=== PATIENT | male | born 1960 | race African-American/Black ===

== ENCOUNTER 2018-10-13 06:52 | Observation (INO) ==
--- NOTE | 2018-10-06 08:43 | EKG Report ---
Test Performed on : 10/06/2018 08:12:23 AM Test Reason : PAT Blood Pressure : / mmHG Vent. Rate : 061 BPM Atrial Rate : 061 BPM P-R Int : 166 ms QRS Dur : 102 ms QT Int : 412 ms P-R-T Axes : 059 072 065 degrees QTc Int : 414 ms Sinus rhythm. with premature atrial complexes. Incomplete right bundle branch block Borderline ECG No previous ECGs available Confirmed by Siddhartha ROJAS, Winston Ariza ([id number]) on 10/06/2018 10:24:09 AM
[2018-10-06 08:57] LABS: URINE SOURCE CLEAN CATCH
[2018-10-06 09:05] LABS: BASO# 0.03 X1000 (0.0-0.2); BASO% 0.5 % (0.0-0.8); EOS# 0.36 X1000 (0.0-0.7); EOS% 5.8 % (0.0-10.0); HEMATOCRIT 40.2 % (42.0-52.0); HEMOGLOBIN 13.2 g/dL (14.0-18.0); IMM GRAN# 0.03 X1000 (0.0-0.04); IMM GRAN% 0.5 % (0.0-0.5); LYMPH% 41.6 % (20.5-51.1); MCH 29.4 PG (27-31); MCHC 32.8 g/dL (33-37); MCV 89.5 FL (81-99); MONO# 0.43 X1000 (0.11-0.59); MONO% 6.9 % (1.7-9.3); MPV 10.9 FL (7.4-10.4); NEUT% 44.7 % (42.2-75.2); PLT 188 X1000 (130-400); RBC 4.49 XMIL (4.7-6.1); RDW 12.2 % (11.5-14.5); WBC 6.25 X1000 (4.8-10.8)
[2018-10-06 09:10] LABS: BILIRUBIN URINE NEGATIVE (NEGATIVE); BLOOD URINE TRACE (NEGATIVE); COLOR YELLOW; GLUCOSE URINE NEGATIVE (NEGATIVE); KETONE URINE NEGATIVE (NEGATIVE); LEUKOCYTES URINE NEGATIVE (NEGATIVE); NITRITE URINE NEGATIVE (NEGATIVE); PH URINE 5.5; PROTEIN URINE TRACE mg/dL (NEGATIVE); SP GRAVITY URINE 1.014; TURBIDITY URINE CLEAR (CLEAR); UROBILINOGEN URINE NORMAL (NORMAL)
[2018-10-06 09:12] LABS: UR EPITHELIAL CELLS <10 /HPF (<10); URINE BACTERIA NEGATIVE /HPF; URINE RBC <10 /HPF (<10); URINE WBC <10 /HPF (<10)
[2018-10-06 09:17] LABS: INR 0.9; PROTIME 12.9 Seconds (11.0-16.0)
[2018-10-06 09:18] LABS: PTT 26.6 Seconds (22.3-41.8)
[2018-10-06 09:27] LABS: AGAP 10; BUN 11 mg/dL (8-22); CHLORIDE 104 mmol/L (98-107); COSMO 279; CREATININE 0.9 mg/dL (0.7-1.2); ESTIMATED GFR > 60; GLUCOSE 133 mg/dL (70-104); POTASSIUM 4.1 mmol/L (3.5-5.1); SODIUM 139 mmol/L (136-145); TCO2 25 mmol/L (25-35)
[2018-10-13] MEDS ORDERED: REGLAN ONE (07:57)
[2018-10-13] MEDS ORDERED: PEPCID ONE (07:57)
[2018-10-13] MEDS ORDERED: COLACE ONE (07:57)
[2018-10-13] MEDS ORDERED: LYRICA ONE (07:58)
[2018-10-13] MEDS ORDERED: CELEBREX ONE (07:59)
[2018-10-13] MEDS ORDERED: KEFZOL 1 GM/D5W 2 GM/100 ML IVPB ONE (07:59)
[2018-10-13] MEDS ORDERED: LR 1,000 ML ONE (07:59)
[2018-10-13] MEDS ORDERED: DURAMORPH ONE (08:03)
[2018-10-13] MEDS ORDERED: TORADOL ONE (08:04)
[2018-10-13] MEDS ORDERED: VANCOMYCIN ONE (08:04)
[2018-10-13] MEDS ORDERED: MARCAINE 0.25% PF/EPI 1:200,000 ONE (08:04)
[2018-10-13] MEDS ORDERED: CYKLOKAPRON 1,000 MG/NS 2,000 MG/200 ML IVPB ONE (08:04)
[2018-10-13] MEDS ORDERED: SODIUM CHLORIDE 0.9% ONE (08:04)
[2018-10-13] MEDS ORDERED: EXPAREL 1.3% ONE (08:05)
[2018-10-13] MEDS ORDERED: NEOSPORIN G.U. IRRIGANT ONE (08:05)
[2018-10-13] MEDS ORDERED: FENTANYL ONE (08:06)
[2018-10-13] MEDS ORDERED: DIPRIVAN 1% 500 MG/50 ML BOTTLE ONE (08:06)
[2018-10-13] MEDS ORDERED: VERSED ONE ×2 (08:06→08:45)
[2018-10-13] MEDS ORDERED: VALIUM ONE (08:14)
[2018-10-13] MEDS ORDERED: ROBINUL ONE (09:02)
[2018-10-13] MEDS ORDERED: DECADRON ONE (09:37)
[2018-10-13] MEDS ORDERED: OFIRMEV 1000 MG/ISOTONIC SOLN 1,000 MG/100 ML BOTTLE ONE (09:37)
[2018-10-13 10:02] LABS: URINE SOURCE CATH
[2018-10-13 10:07] LABS: BILIRUBIN URINE NEGATIVE (NEGATIVE); BLOOD URINE TRACE (NEGATIVE); COLOR YELLOW; GLUCOSE URINE NEGATIVE (NEGATIVE); KETONE URINE NEGATIVE (NEGATIVE); LEUKOCYTES URINE NEGATIVE (NEGATIVE); NITRITE URINE NEGATIVE (NEGATIVE); PH URINE 5.5; PROTEIN URINE NEGATIVE (NEGATIVE); SP GRAVITY URINE 1.016; TURBIDITY URINE CLEAR (CLEAR); UROBILINOGEN URINE NORMAL (NORMAL)
[2018-10-13 10:08] LABS: UR EPITHELIAL CELLS <10 /HPF (<10); URINE BACTERIA NEGATIVE /HPF; URINE RBC <10 /HPF (<10); URINE WBC <10 /HPF (<10)
[2018-10-13] MEDS ORDERED: DIPRIVAN 1% ONE (10:38)
[2018-10-13] MEDS ORDERED: NS 1,000 ML ONE (11:32)
--- NOTE | 2018-10-13 12:24 | Diag Imaging Result Doc PS360 ---
KNEE 1-2 VIEWS-LEFT - 10/13/2018 INDICATION: post op TECHNIQUE: Two views COMPARISON: 05/11/2018 FINDINGS: There has been placement of a left total knee arthroplasty in good position. Alignment is anatomic. No hardware fracture or loosening. IMPRESSION: No complication. Electronically signed by Darwin Dawson 10/13/2018 12:22 PM
[2018-10-13] MEDS: NS 1,000 ML IV SCH (13:13)
[2018-10-13] MEDS ORDERED: OXY IR PO PRN (13:15)
[2018-10-13] MEDS ORDERED: ZOFRAN PO PRN (13:15)
[2018-10-13] MEDS: KEFZOL 2 GM/D5W 2 GM/50 ML IVPB IV SCH (18:39)
[2018-10-13] MEDS: PERIDEX MT SCH (20:40)
[2018-10-13] MEDS: COLACE PO SCH (20:40)
--- NOTE | 2018-10-13 21:28 | OPERATIVE NOTE ---
PROCEDURE DATE: 10/13/2018 PREOPERATIVE DIAGNOSIS: Degenerative osteoarthritis of the left knee. POSTOPERATIVE DIAGNOSIS: Degenerative osteoarthritis of the left knee. PROCEDURE: Left total knee arthroplasty with DePuy Attune, size 9 posterior stabilized femur, a size 9 tibial tray, 8 mm rotating platform tibial insert, and a 41 mm medialized anatomic patella. SURGEON: William Moreno MD. MONTESSORI PARAPROFESSIONAL: KEELEY Mccann. SECOND SALES PLANNING ANALYST: Mich Childs RN. ANESTHESIA: Spinal. IV FLUIDS: 1300 mL lactated Ringer. ESTIMATED BLOOD LOSS: 25 mL. TOURNIQUET TIME: 110 minutes at 250 mmHg. COMPLICATIONS: None. INDICATION: The patient is a pleasant 58-year-old male with chronic history of worsening pain and discomfort of his left knee. He has continued pain and discomfort despite appropriate nonoperative treatment. X-rays revealed degenerative osteoarthritis, and recommendation to proceed with left total knee arthroplasty was offered. Risks and benefits of surgery explained, including risks of anesthesia, , bleeding, infection, failure to relieve pain, postoperative stiffness, nerve injury, blood clots, and other imponderables. All questions were answered. The patient and family wished to proceed with surgery. DETAILS OF OPERATION: The patient was taken to the operating room and placed supine on the operating table. Once adequate anesthesia was obtained, patient's left lower extremity was subsequently prepped and draped in the usual sterile fashion. Esmarch was used to exsanguinate the left lower extremity, and the tourniquet was inflated to 350 mmHg. A standard anterior incision was made with a skin knife. Medial and lateral skin envelopes were developed. A standard medial parapatellar arthrotomy was then performed. Patellar fat pad was excised. Retractors were then placed. Approximately 1 cm anterior to the PCL insertion, starting reamer was passed. The intramedullary guide with a distal femoral cutting block was pinned in position. Distal femoral cut was then performed in standard fashion. A sizing block was placed and measured size 9. Corresponding pins were placed. A size 9 cutting block was placed in position. Anterior, posterior, and chamfer cuts were then made. Using the extramedullary guide, the proximal tibia cutting block was pinned in position. It had good alignment confirmed with the alignment zita. The proximal tibia was then resected. Medial and lateral menisci were excised. A curved osteotome was used to remove posterior osteophytes off the distal femur. A spacer block was placed and had good soft tissue balance in both flexion and extension. The patella had been the everted and resected and a protective disk had been placed prior to making the femoral cuts. Attention was turned back to the proximal tibia where a size 9 tibial tray appeared to be correct size. Corresponding pins were placed. Central hole was reamed followed by a fin punch. A box cutting guide was pinned on the distal femur. A box cut was then performed. A trial femoral component was then placed. Two lug holes were drilled. Trial tibial insert was then placed and had good soft tissue balancing. The patella had been everted prior to making the femoral cuts and a protective disk had been placed. At this point, attention was turned to the patella and the protective disk was removed. The 41 mm appeared to be correct size. Corresponding holes were drilled. A 41 mm medialized anatomic patella was then placed and had good patellofemoral tracking. The components were then removed. Copious irrigation was then performed once again with antibiotic pulsatile lavage while vancomycin was mixed with cement on the back table. Sequential cementing was then performed, first with the tibial tray, and excess cement was removed with a Platina, followed by the femoral component and excess cement was removed with a Platina, followed by trial tibial insert in full extension, and axial loading was maintained while cement cured. Patellar component was cemented in standard fashion. Patellar clamp was placed. While cement was curing, Exparel was placed in the deep soft tissue as well as the subcutaneous tissue. After the cement had cured, peripheral cement was removed with a small osteotome. An 8 mm rotating platform tibial insert appeared to be correct size. The trial insert was removed. Exparel was placed in the deep posterior capsule. The wound was copiously irrigated once again with antibiotic pulsatile lavage followed by 8 mm rotating platform tibial insert. The knee was then carried through range of motion with good soft tissue balance and good range of motion and good patellofemoral tracking. A 1/8 Hemovac drain was placed and was not sewn in. Copious irrigation was done once again with antibiotic pulsatile lavage. A #1 Vicryl was used to repair the arthrotomy followed by 2-0 Vicryl to repair subcutaneous tissue and skin patricia. Adaptic, sterile 4 x 4's, ABD pad, Webril, cryo unit, Giorgi wrap were applied to the left lower extremity. Patient tolerated the procedure well and was transferred to the recovery room in stable condition. cc: William Moreno MD
[2018-10-14] MEDS: KEFZOL 2 GM/D5W 2 GM/50 ML IVPB IV SCH (02:15)
[2018-10-14] MEDS: NS 1,000 ML IV SCH ×2 (02:15→17:13)
[2018-10-14] MEDS ORDERED: XARELTO PO SCH (06:00)
[2018-10-14 06:25] LABS: HEMATOCRIT 34.6 % (42.0-52.0); HEMOGLOBIN 11.4 g/dL (14.0-18.0)
[2018-10-14 06:48] LABS: AGAP 7; BUN 14 mg/dL (8-22); CALCIUM 8.1 mg/dL (8.8-10.2); CHLORIDE 97 mmol/L (98-107); COSMO 268; CREATININE 0.9 mg/dL (0.7-1.2); ESTIMATED GFR > 60; GLUCOSE 224 mg/dL (70-104); POTASSIUM 4.2 mmol/L (3.5-5.1); SODIUM 130 mmol/L (136-145); TCO2 26 mmol/L (25-35)
[2018-10-14] MEDS: ZIAC 5/6.25 MG PO SCH (09:27)
[2018-10-14] MEDS: PERIDEX MT SCH ×2 (09:27→21:40)
[2018-10-14] MEDS: LIPITOR PO SCH (09:27)
[2018-10-14] MEDS: ASPIRIN PO SCH (09:27)
[2018-10-14] MEDS: OXY IR PO PRN ×2 (09:27→19:04)
[2018-10-14] MEDS: COLACE PO SCH ×2 (09:28→21:40)
--- NOTE | 2018-10-14 09:40 | ORTHOPAEDICS PROGRESS NOTE ---
DATE: 10/14/2018 SUBJECTIVE: The patient is a pleasant 58-year-old male who is 1 day status post left total knee arthroplasty. Patient is resting comfortably. PHYSICAL EXAMINATION: Patient's left lower extremity wound looks good. There are no signs or symptoms of infection. He has had some bleeding at the site of incision and had 120 mL in his Hemovac drain. Calf is soft. He has active dorsiflexion and plantar flexion. He is neurovascularly distally. His labs are pending. IMPRESSION: Postoperative day #1 status post left total knee arthroplasty. PLAN: At this time, we will get him mobilization with Physical Therapy. The patient is wishing to go for inpatient rehabilitation. social services aide has been consulted. cc: William Moreno MD MTDD
[2018-10-15 06:10] LABS: HEMATOCRIT 33.1 % (42.0-52.0)
[2018-10-15] MEDS ORDERED: OXY IR PO PRN (06:20)
[2018-10-15] MEDS: OXY IR PO PRN ×2 (09:00→14:11)
[2018-10-15] MEDS: ZIAC 5/6.25 MG PO SCH (09:00)
[2018-10-15] MEDS: COLACE PO SCH (09:00)
[2018-10-15] MEDS: ASPIRIN PO SCH (09:00)
[2018-10-15] MEDS: PERIDEX MT SCH (09:00)
[2018-10-15] MEDS: LIPITOR PO SCH (09:00)
--- NOTE | 2018-10-15 11:20 | DISCHARGE SUMMARY ---
ADMISSION DATE: 10/13/2018 DISCHARGE DATE: 10/15/2018 FAMILY PHYSICIAN: Ankush Rivera DO. PROCEDURE DATE: 10/13/2018, Dr. Moreno performed a left total knee arthroplasty. ADMITTING DIAGNOSIS: 1. Degenerative osteoarthritis of the left knee. 2. Primary essential hypertension. DISCHARGE DIAGNOSIS: 1. Degenerative osteoarthritis left knee status post total left knee arthroplasty. 2. Primary essential hypertension. HOSPITAL COURSE: Mr. Adams is a 58-year-old male with a past medical history of osteoarthritis of the left knee and primary essential hypertension. Dr. Moreno had been following him in the office for quite a while. He had continued worsening of left knee pain. It was decided that after nonoperative treatment such as therapy, injections, and antiinflammatories had been unsuccessful to proceed with surgical intervention. Risks and benefits of the surgery was explained. Risks include anesthesia, , bleeding, infection, failure to relieve pain, postoperative stiffness, nerve injury, blood clots, and other imponderables. All questions were answered. The patient and family wished to proceed with surgery. The patient was taken to the operating room where satisfactory anesthesia was obtained. He tolerated the procedure well and was transferred to the recovery room. After satisfactory recovery, he was transferred to [address] [place] [address]. He has had a pretty uneventful postoperative course other than he has had a little bit of trouble mobilizing. He also reports he does not have a lot of help at home to help him get around. We would like for him to do an inpatient rehabilitation stay. We think he would mobilize a little bit better after some inpatient treatment. His discharge hemoglobin and hematocrit are 11 and 33.1. BUN and creatinine is 14 and 0.9. Current vital signs: Temperature is 98.4, pulse 63, respirations 18, blood pressure 136/71, and he is 100% on room air. He has worked with physical therapy and has achieved 95 degrees of flexion on the knee. He is able to get into almost full extension. He did walk about 250 feet with a front-wheeled walker, and at this time, he is ready for discharge. DISCHARGE MEDICATIONS: Aspirin 325 mg p.o. daily, Lipitor 10 mg p.o. q.a.m., Ziac 1 mg p.o. q.a.m., Percocet 10 mg p.o. q.4 hours as needed for pain. DISCHARGE DISPOSITION: Mr. Adams is being discharged to an inpatient rehabilitation stay. This way he will be able to continue to work on his mobilization and hopefully have a little easier recovery. I have discussed with him the signs and symptoms of postoperative infection. We did review incision care. It is okay for him to shower but we do not want him taking any tub baths. He is full weightbearing on this left knee. He will be on Percocet for pain control. We will do aspirin for DVT prophylaxis. We will have him follow up in the office with Dr. Moreno in 2 weeks. We will get his patricia out at that time. If there are any questions or concerns, please call the office. Dictated by BARRIE Mccann for William Moreno MD cc: BARRIE Mccann MD
--- NOTE | 2018-10-15 11:34 | ORTHOPAEDICS PROGRESS NOTE ---
DATE: 10/15/2018 SUBJECTIVE: Patient was a 58-year-old male, who is 2 days status post left total knee arthroplasty. He is currently resting comfortably. OBJECTIVE: On physical examination, the patient's dressing is intact. Calf is soft. He has active dorsiflexion, plantar flexion. LABORATORY DATA: Hemoglobin is 11.0, hematocrit is 33.1. IMPRESSION: Postoperative day #2 status post left total knee arthroplasty. PLAN: At this point, we will plan on discharging for inpatient rehabilitation once bed is available. Patient is progressing well with physical therapy. cc: William Moreno MD
[2018-10-15 11:55] VITALS: BP 132/61
== END 2018-10-15 14:40 ==
LOC: OR 06:52 → INTOOBSV 10:16 → 4N 10:16
PROVIDERS: ADMIT Orthopaedic Surgery Adult Reconstructive Orthopaedic Surgery; ATTEND Orthopaedic Surgery Adult Reconstructive Orthopaedic Surgery
CPT/HCPCS: 73560; 80048; 81001; 85014; 85018; 85025; 85610; 85730; 86850; 86900; 86901; 88305; 88311; 93005; 93010; 94799; 96374; 96376; 97110; 97116; 97162; A9270; C9290; G0378; G0379; J0131; J0690; J1100; J1885; J2250; J2274; J2275; J3010; J3370; J7030; J7120; Q9974; S0020